=== PATIENT | female | born 1995 | race Caucasian/White ===

== ENCOUNTER 2018-04-23 17:36 | Observation (INO) | payer OTHER ==
[2018-04-23] MEDS: ONDANSETRON (ODT) 4 MG TAB ODT (19:15)
[2018-04-23 19:19] LABS: URINE BLOOD (Dip) POC Negative (NEGATIVE); URINE GLUCOSE (Dip) POC Negative (NEGATIVE); URINE KETONES (Dip) POC Negative (NEGATIVE); URINE LEUKOCYTE EST (Dip) POC Negative (NEGATIVE); URINE NITRITE (Dip) POC Negative (NEGATIVE); URINE TOTAL PROTEIN POC Negative (NEGATIVE)
[2018-04-23] MEDS: ACETAMINOPHEN 325 MG TAB PO (19:27)
[2018-04-23] MEDS ORDERED: HYDROCODONE/APAP (5/325) TAB PO (19:30)
[2018-04-23 19:54] LABS: ADD MAN DIFF? NO
[2018-04-23 19:55] LABS: WHITE BLOOD COUNT 13.3 10^3/ul (4.8-10.8)
[2018-04-23 19:55] LABS: BASOPHIL # 0.1 10^3/ul (0.0-0.1); BASOPHILS % 0.5 % (0.0-2.0); EOSINOPHILS # 0.3 10^3/ul (0.0-0.5); EOSINOPHILS % 1.9 % (0.0-7.0); HEMATOCRIT 37.1 % (37.0-47.0); HEMOGLOBIN 12.2 g/dl (12.0-16.0); LYMPHOCYTES % 15.3 % (15.0-51.0); MEAN CORPUSCULAR HEMOGLOBIN 28.8 pg (29.0-33.0); MEAN CORPUSCULAR HGB CONC 32.9 g/dl (32.0-37.0); MEAN CORPUSCULAR VOLUME 87.5 fl (82.0-101.0); MEAN PLATELET VOLUME 12.1 fl (7.4-10.4); MONOCYTE # 0.5 10^3/ul (0.3-0.9); MONOCYTES % 3.5 % (0.0-11.0); NEUTROPHIL # 10.4 10^3/ul (1.6-7.5); NEUTROPHILS % 78.5 % (39.0-77.0); PLATELET COUNT 334 10^3/UL (140-415); RED BLOOD COUNT 4.24 10^6/ul (4.20-5.40); RED CELL DISTRIBUTION WIDTH 14.2 % (11.5-14.5)
[2018-04-24] MEDS: CEFAZOLIN 2 GM/50 ML (PMX) 50 ML IVPB (03:30)
[2018-04-24] MEDS: LACTATED RINGER'S 1,000 ML IV ×2 (03:42→11:07)
[2018-04-24] MEDS ORDERED: SUCCINYLCHOLINE CHLORIDE 100 MG/5 ML SYG IV (07:00)
[2018-04-24] MEDS ORDERED: CEFAZOLIN 1 GM INJ (07:00)
[2018-04-24] MEDS: morphine 2 MG INJ IV (09:40)
[2018-04-24] MEDS ORDERED: LIDOCAINE 100 MG SYRINGE (13:26)
[2018-04-24] MEDS ORDERED: FENTAnyl 50 MCG/ML VIAL ×2 (13:26→14:19)
[2018-04-24] MEDS ORDERED: PROPOFOL 20 ML (13:26)
[2018-04-24] MEDS ORDERED: MIDAZOLAM 1 MG/ML 2 ML INJ (13:26)
[2018-04-24] MEDS ORDERED: ROCURONIUM 50 MG INJ (13:26)
[2018-04-24] MEDS ORDERED: METOCLOPRAMIDE 10 MG INJ (13:53)
[2018-04-24] MEDS ORDERED: DEXAMETHASONE 4 MG/ML 1 ML INJ (13:53)
[2018-04-24] MEDS ORDERED: ONDANSETRON 4 MG INJ (13:53)
[2018-04-24] MEDS ORDERED: FAMOTIDINE 20 MG INJ (13:54)
[2018-04-24] MEDS ORDERED: SUGAMMADEX SODIUM 200 MG/2 ML VIAL IV (13:58)
[2018-04-24] MEDS ORDERED: ONDANSETRON 4 MG INJ IV (14:30)
[2018-04-24] MEDS ORDERED: HYDROmorphONE 1 MG/5 ML IV SYRINGE IV ×3 (14:30→15:00)
[2018-04-24] MEDS ORDERED: MEPERIDINE 25 MG INJ IV (14:30)
[2018-04-24] MEDS ORDERED: OXYCODONE/ACETAMINOPHEN (5/325) TAB PO ×2 (14:30)
[2018-04-24] MEDS: HYDROmorphONE 1 MG/5 ML IV SYRINGE IV ×2 (15:01→15:22)
[2018-04-24] MEDS: morphine LIQ (10 MG/5 ML) CUP PO (21:31)
[2018-04-25] MEDS: morphine LIQ (10 MG/5 ML) CUP PO (06:39)
== END 2018-04-25 09:45 | disposition home or self-care (01) ==
LOC: FTE 17:36 → PP2 04-24 03:24
PROVIDERS: Obstetrics & Gynecology
DX: O00.102 Left tubal pregnancy without intrauterine pregnancy (principal); Z88.2 Allergy status to sulfonamides
CPT/HCPCS: 58120; 76801; 76817; 81003; 81025; 84702; 85025; 86900; 86901; 88305; G0378